=== PATIENT | female | born 1950 | race Caucasian/White ===

== ENCOUNTER 2018-06-06 21:01 | Emergency (ER) | payer MEDICARE, OTHER ==
[~2018-06-06] VITALS: Ht 157.5 cm; Wt 91.0 kg
[2018-06-06] MEDS ORDERED: METHYLPRED4 MG PO (21:14)
[2018-06-06] MEDS ORDERED: AZITHROMYCIN1 GM PO (21:14)
--- NOTE | 2018-06-06 21:36 | NUR ---
BREATHING TREATMENT GIVEN USING A MOUTH PEICE. BREATHING TECH. FOR GOOD DEPOSITION TO THE LUNGS.
[2018-06-06 21:45] LABS: HEMATOCRIT 45.3 % (37.0-47.0); HEMOGLOBIN 15.3 g/dl (12.0-16.0); IMMATURE GRANULOCYTES 0.3 % (0.0-5.0); MEAN CELL VOLUME 97.4 fL CALC (80.0-100.0); MEAN CORPUSCULAR HGB 32.9 pG CALC (26.0-32.0); MEAN CORPUSCULAR HGB CONC 33.8 g/L CALC (32.0-36.0); NEUT# 10.01 thou/uL (2.00-7.15); RED BLOOD COUNT 4.65 mill/uL (4.20-5.60); RED CELL DISTRI WIDTH 12.8 % (11.5-15.5)
[2018-06-06] MEDS ORDERED: OMEPRAZOLE20 M2 PO (22:16)
[2018-06-06] MEDS ORDERED: LEVOTHYROXIN50 MCG PO (22:16)
[2018-06-06] MEDS ORDERED: TENORMIN25 MG PO (22:17)
[2018-06-06 22:18] LABS: ALKALINE PHOSPHATASE 178 u/l (38-126); ANION GAP 14 (6-22 (CALC)); BILIRUBIN, TOTAL 0.5 mg/dL (0.0-1.4); BUN 28 mg/dL (8-23); BUN/CREATININE RATIO 32 (12-20 (CALC)); CARBON DIOXIDE 26 mmol/l (22-30); CHLORIDE 103 mmol/l (95-108); CREATININE 0.9 mg/dL (0.5-1.0); GFR > 60 ML/MIN (>=60 (CALC)); GFR FOR AFR.AMER. > 60 ML/MIN (>=60 (CALC)); POTASSIUM 4.3 mmol/l (3.5-5.1); SGOT/AST 52 u/l (9-36); SODIUM 139 mmol/l (137-146); TOTAL PROTEIN 7.3 g/dL (6.3-8.2)
[2018-06-06] MEDS ORDERED: REQUIP XL2 MG PO (22:18)
[2018-06-06] MEDS ORDERED: REQUIP0.5 MG PO (22:18)
[2018-06-06] MEDS ORDERED: VENTOLIN HFA IN (22:32)
[2018-06-06] MEDS ORDERED: PREDNISONE50 MG PO (22:32)
[2018-06-06 22:50] VITALS: BP 160/69
== END 2018-06-06 22:50 | disposition home or self-care (01) ==
LOC: ED 21:01
PROVIDERS: Family Medicine
DX: J45.909 Unspecified asthma, uncomplicated (principal); M19.90 Unspecified osteoarthritis, unspecified site; I10 Essential (primary) hypertension

== ENCOUNTER 2018-06-08 20:40 | Emergency (ER) | payer MEDICARE, OTHER ==
[~2018-06-08] VITALS: Ht 157.5 cm; Wt 94.8 kg
[~2018-06-08 20:40] MED LIST: AZITHROMYCIN1 GM PO; LEVOTHYROXIN50 MCG PO; METHYLPRED4 MG PO; OMEPRAZOLE20 M2 PO; PREDNISONE50 MG PO; REQUIP XL2 MG PO; REQUIP0.5 MG PO; TENORMIN25 MG PO; VENTOLIN HFA IN
[2018-06-08 21:38] LABS: HEMATOCRIT 46.5 % (37.0-47.0); HEMOGLOBIN 15.8 g/dl (12.0-16.0); IMMATURE GRANULOCYTES 0.9 % (0.0-5.0); MEAN CELL VOLUME 96.7 fL CALC (80.0-100.0); MEAN CORPUSCULAR HGB 32.8 pG CALC (26.0-32.0); NEUT# 10.03 thou/uL (2.00-7.15); RED BLOOD COUNT 4.81 mill/uL (4.20-5.60); RED CELL DISTRI WIDTH 12.9 % (11.5-15.5)
[2018-06-08 21:44] LABS: ALBUMIN 4.2 g/dL (3.2-5.0); ALKALINE PHOSPHATASE 150 u/l (38-126); ANION GAP 16 (6-22 (CALC)); BILIRUBIN, TOTAL 0.6 mg/dL (0.0-1.4); BUN 40 mg/dL (8-23); BUN/CREATININE RATIO 43 (12-20 (CALC)); CARBON DIOXIDE 24 mmol/l (22-30); CHLORIDE 103 mmol/l (95-108); CREATININE 0.9 mg/dL (0.5-1.0); GFR > 60 ML/MIN (>=60 (CALC)); GFR FOR AFR.AMER. > 60 ML/MIN (>=60 (CALC)); POTASSIUM 4.6 mmol/l (3.5-5.1); SGOT/AST 71 u/l (9-36); SODIUM 137 mmol/l (137-146); TOTAL PROTEIN 7.5 g/dL (6.3-8.2)
[2018-06-08 21:57] LABS: MYOGLOBIN 67 ng/mL (0 - 62)
--- NOTE | 2018-06-08 23:05 | NUR ---
BREATHING TREATMENT GIVEN USING MOUTH PEICE. BREATHING TECH. FOR GOOD DEPOSITION TO THE LUNGS.
[2018-06-08] MEDS ORDERED: ROBITUSSIN AC10 ML PO (23:09)
[2018-06-08 23:38] VITALS: BP 138/72
== END 2018-06-08 23:37 | disposition home or self-care (01) ==
LOC: ED 20:40
PROVIDERS: Emergency Medicine
DX: J45.909 Unspecified asthma, uncomplicated (principal); M19.90 Unspecified osteoarthritis, unspecified site; I10 Essential (primary) hypertension